=== PATIENT | male | born 1940 | race Caucasian/White ===

== ENCOUNTER 2019-12-17 07:46 | Day surgery (SDC) | payer MEDICARE, MEDICAID ==
[~2019-12-17] VITALS: Ht 172.7 cm; Wt 87.1 kg
[2019-12-17] VITALS (8 sets, daily range): BP systolic 144–171; BP diastolic 58–85
[~2019-12-17 07:46] MED LIST: FLOMAX0.4 MG ORAL; IBUPROFEN600 M1 ORAL; JANUMET 50-1,01 EACH ORAL; TOPIRAMATE25 MG ORAL; Vancomycin 1 GM in D5W 275 ML IVPB ONE
[2019-12-17] MEDS ORDERED: NS Irrig 1000ml ONE (07:47)
[2019-12-17] MEDS ORDERED: Ketorolac 60mg Inj IM ONE (07:47)
[2019-12-17] MEDS ORDERED: Sterile Water Irrig 2000ml IRRIG ONE (07:47)
--- NOTE | 2019-12-17 08:03 | Pre-Procedure Note/Attestation ---
Pre-Procedure Note/Attestation Complete Prior to Procedure Planned Procedure: not applicable Procedure Narrative: IPP Indications for Procedure Pre-Operative Diagnosis: ED Attestation I attest that I discussed the nature of the procedure; its benefits; risks and complications; and alternatives (and the risks and benefits of such alternatives), prior to the procedure, with the patient (or the patient's legal farm loan representative). I attest that, if there was a reasonable possibility of needing a blood transfusion, the patient (or the patient's legal farm loan representative) was given the [facility] standardized written summary, pursuant to the Jewel Darling Blood Safety Act ([place] Health and Safety Code # 1645, as amended). I attest that I re-evaluated the patient just prior to the surgery and that there has been no change in the patient's H&P, except as documented below: Tim Wiseman MD Dec 17, 2019 08:03
[2019-12-17] MEDS ORDERED: fentaNYL 100 mcg/2 mL IV ONE ×2 (09:35→12:04)
[2019-12-17] MEDS ORDERED: Midazolam 2mg/2ml Inj ONE (09:35)
[2019-12-17] MEDS ORDERED: Betadine 10% Oint 30gm TOPIC ONE (10:47)
[2019-12-17] MEDS ORDERED: Bacitracin Oint 15gm Tube TOPIC ONE (10:47)
[2019-12-17] MEDS ORDERED: Bacitracin 50000 Units Vial ONE (10:47)
[2019-12-17] MEDS ORDERED: Vancomycin 1gm vial IVPB ONE (10:47)
[2019-12-17] MEDS ORDERED: NS Irrig 1000ml IRRIG ONE (12:13)
[2019-12-17] MEDS ORDERED: Neostigmine 1mg/ml 10ml Inj ONE (12:29)
[2019-12-17] MEDS ORDERED: Lidocaine 1% MPF 10mg/ml 5ml ONE (12:29)
[2019-12-17] MEDS ORDERED: Metoclopramide 10mg/2ml Inj ONE (12:29)
[2019-12-17] MEDS ORDERED: Glycopyrrolate 0.2mg/ml 1ml Vial ONE (12:29)
--- NOTE | 2019-12-17 13:03 | Brief Operative Note ---
Immediate Post Operative Note Operative Note Pre-op Diagnosis: ED Procedure: ipp Post-op Diagnosis: same Surgeon: Santhosh Wiseman Anesthesia: general Specimen: none Complications: none Condition: stable Fluids: 500 Implant(s) used?: Yes Tim Wiseman MD Dec 17, 2019 13:03
[2019-12-17] MEDS ORDERED: HYDROcodone/Acetamin 5/325 tab ORAL PRN (13:15)
[2019-12-17] MEDS ORDERED: HYDROmorphone 1mg/ml Carpuject SUBQ PRN (13:15)
[2019-12-17] MEDS ORDERED: Tylenol #3 tab (300mg/30mg) ORAL PRN (13:15)
--- NOTE | 2019-12-17 13:20 | Immediate Post-Op Evaluation ---
Immediate Post-Op Evalulation Immediate Post-Op Evalulation Procedure: Penile Implant Insertion Date of Evaluation: Dec 17, 2019 Time of Evaluation: 13:18 IV Fluids: 1200 Blood Products: 0 Estimated Blood Loss: 10 Blood Pressure Systolic: 154 Blood Pressure Diastolic: 68 Pulse Rate: 86 Respiratory Rate: 14 O2 Sat by Pulse Oximetry: 98 Temperature (Fahrenheit): 97.4 Nausea: No Vomiting: No Complications none Patient Status: awake, reacts, patent Hydration Status: adequate Drug: gent/vac Given Within 1 Hr of Incision: Yes Time Given: 11:30 Fatuma Jules CRNA Dec 17, 2019 13:20
--- NOTE | 2019-12-17 13:23 | Anethesia Preoperative Eval ---
Anesthesia Pre-op PMH/ROS General Date of Evaluation: Dec 17, 2019 Time of Evaluation: 11:00 Anesthesiologist: radha ASA Score: ASA 3 Mallampati Score Class I : Soft palate, uvula, fauces, pillars visible Class II: Soft palate, uvula, fauces visible Class III: Soft palate, base of uvula visible Class IV: Only hard plate visible Mallampati Classification: Class III Surgeon: Ivone Diagnosis: Impotence Surgical Procedure: Penile Implant Insertion Anesthesia History: none Family History: no anesthesia problems Allergies: Coded Allergies: No Known Allergies (Unverified , 12/16/19) Medications: see eMAR Patient NPO?: Yes NPO Date: Dec 17, 2019 NPO Time: 00:01 Past Medical History Cardiovascular: Reports: HTN, CAD Pulmonary: Reports: other - emphasema; Denies: asthma, COPD, AMINTA Gastrointestinal/Genitourinary: Reports: GERD; Denies: CRI, ESRD, other Endocrine: Reports: DM Musculoskeletal/Integumentary: Reports: OA, other - hx lung ca Other: obesity PSxH Narrative: lung resection Anesthesia Pre-op Phys. Exam Physician Exam Last Vital Signs Date Time Temp Pulse Resp B/P (MAP) Pulse Ox O2 Delivery O2 Flow Rate FiO2 12/17/19 08:49 Room Air 12/17/19 08:22 97.8 72 18 155/75 99 Constitutional: NAD Neurologic: CN 2-12 intact Cardiovascular: RRR Respiratory: CTA Gastrointestinal: S/NT/ND Airway Exam Mallampati Classification 3 Mallampati Score: Class III MO: limited Neck: thick TMD: 2fb Dentures: no upper, no lower Anesthesia Pre-op A/P Labs Chemistry Test 12/17/19 08:40 POC Whole Blood Glucose Pending Studies Pre-op Studies: EKG - sr Risk Assessment & Plan Assessment: denies sob/ indigestion ; covid neg Plan: general Status Change Before Surgery: No Pre-Antibiotics Drug: gent/vanc Given Within 1 Hr of Incision: Yes Time Given: 11:30 Fatuma Jules CRNA Dec 17, 2019 13:23
[2019-12-17] MEDS ORDERED: fentaNYL 100 mcg/2 mL IV PRN (13:30)
[2019-12-17] MEDS ORDERED: Labetalol 5mg/ml 20ml vial IV PRN (13:30)
[2019-12-17] MEDS ORDERED: Metoclopramide 10mg/2ml Inj IVP PRN (13:30)
[2019-12-17] MEDS ORDERED: Hydromorphone 0.5mg/0.5ml inj IVP PRN (13:30)
--- NOTE | 2019-12-17 13:34 | 48 Hour Post Anesthesia Eval ---
Post Anesthesia Evaluation Procedure: Penile Implant Insertion Date of Evaluation: Dec 17, 2019 Time of Evaluation: 13:33 Blood Pressure Systolic: 150 0: 70 Pulse Rate: 90 Respiratory Rate: 14 O2 Sat by Pulse Oximetry: 98 Airway: patent Nausea: No Vomiting: No Hydration Status: adequate Cardiopulmonary Status: stable Mental Status/LOC: patient returned to baseline Follow-up Care/Observations: na Post-Anesthesia Complications: none Follow-up care needed: N/A Fatuma Jules EDGING SUPERVISOR Dec 17, 2019 13:34
[2019-12-17] MEDS ORDERED: D5 1/2NS 1,000 ML IV SCH (17:00)
--- NOTE | 2019-12-20 20:15 | Operative Note - Dictated ---
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 OPERATION: Implantation of inflatable penile prosthesis. OPERATED BY: Tim Wiseman M.D. ANESTHESIA: General. FINDINGS: Obstructed corpora. 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 He wanted to proceed with penile prosthesis. The patient understands all potential complications such as prostatic infections, urethral injuries, urinary tract infections, [place], PE, and , and he signed the consent. DESCRIPTION OF OPERATION: The patient was brought to the operating room, placed in supine position, prepped and draped in standard fashion under general anesthesia. A penoscrotal incision was made and both corpora were mobilized. Rabago catheter was placed to protect urethra. Corpora was opened approximately 2 cm on each side and dilated to 17-English with the Hegar dilators. A 21 cm penile prosthesis was placed, Ambicor prosthesis. It was tested, it was working properly. Corpora was then closed with running sutures on both sites with 2-0 Vicryl. Subdartos fascia was used to place the pump into the scrotum and then closed with 3-0 running Vicryl suture. The scrotum was closed with running subcuticular closure. The patient tolerated the procedure well. No complications. Sponge count and instrument count were correct. Tim Wiseman M.D. DR: TYRELL JOB#: [id number] CC:
== END 2019-12-17 14:35 | disposition home or self-care (01) ==
LOC: SUR 07:46
DX: N52.9 Male erectile dysfunction, unspecified (principal); I11.9 Hypertensive heart disease without heart failure; I25.10 Atherosclerotic heart disease of native coronary artery without angina pectoris; K21.9 Gastro-esophageal reflux disease without esophagitis; E11.9 Type 2 diabetes mellitus without complications; M19.90 Unspecified osteoarthritis, unspecified site; Z85.118 Personal history of other malignant neoplasm of bronchus and lung
CPT/HCPCS: 54405; 82962; 94003; C1813; J1580; J2250; J2405; J2704; J2710; J2765; J3010; J3370; U0002; 94150